=== PATIENT | female | born 2000 | race African-American/Black ===

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

== ENCOUNTER 2018-01-02 06:21 | Inpatient (IN) | payer MEDICAID, OTHER ==
[~2018-01-02] VITALS: Ht 167.6 cm; Wt 97.5 kg
[~2018-01-02 06:21] MED LIST: FLUO-191 PO; OLAN5TAB2 PO; TRAZ-144 PO
[2018-01-02] MEDS ORDERED: LORazepam 2 MG/ML VIAL IM ONE (08:00)
[2018-01-02] MEDS ORDERED: HALOPERIDOL LACTATE 5 MG/ML VIAL IM ONE (08:00)
[2018-01-02] MEDS ORDERED: DiphenhydrAMINE HCL 50 MG/ML VIAL IM ONE (08:00)
[2018-01-02] MEDS: OLANZapine 5 MG TABLET PO SCH ×3 (09:00→21:00)
[2018-01-02] MEDS ORDERED: OLANZapine 10 MG TABLET PO SCH (09:00)
[2018-01-02] MEDS: FLUoxetine HCL 20 MG CAPSULE PO SCH ×2 (09:00→10:29)
[2018-01-02 09:23] LABS: BASOPHILS % (AUTO) 0.6 % (0.0-2.0); EOSINOPHILS % (AUTO) 1.8 % (1.0-6.0); HEMATOCRIT 39.7 % (36-46); HEMOGLOBIN 13.6 g/dL (12.0-16.0); LYMPHOCYTES # (AUTO) 2.6 K/uL (1.0-4.8); LYMPHOCYTES % (AUTO) 26.6 % (22.0-44.0); MEAN CORPUSCULAR HEMOGLOBIN 29.4 pg (26.0-34.0); MEAN CORPUSCULAR HGB CONC 34.4 G/dL (31.0-37.0); MEAN CORPUSCULAR VOLUME 85 fL (80-100); MONOCYTES # (AUTO) 0.7 K/uL (0.1-1.0); MONOCYTES % (AUTO) 7.4 % (2.0-9.0); NEUTROPHILS # (AUTO) 6.1 K/uL (1.8-7.7); NEUTROPHILS % (AUTO) 63.6 % (40.0-70.0); PLATELET COUNT (AUTO) 296 K/uL (150-450); RED BLOOD CELL COUNT(AUTO) 4.65 MIL/uL (4.00-5.20); RED CELL DISTRIBUTION WIDTH 13.6 % (11.5-14.5)
[2018-01-02 09:31] LABS: ANION GAP 13 mmol/L (8-16); CALCIUM, TOTAL 9.2 mg/dL (8.8-10.5); CARBON DIOXIDE 25 mmol/L (22-29); CHLORIDE 100 mmol/L (98-107); CREATININE 1.19 mg/dL (0.60-1.30); GLOMERULAR FILTR. RATE CALC > 60 mL/min (>60); GLUCOSE,RANDOM 90 mg/dL (70-110); POTASSIUM 3.3 mmol/L (3.5-5.1); SODIUM SERUM 138 mmol/L (136-145); UREA NITROGEN, BLOOD 14 mg/dL (7-18)
[2018-01-02 09:37] LABS: ALANINE AMINOTRANSFERASE 37 U/L (12-78); ALBUMIN 3.7 g/dL (3.4-5.0); ALKALINE PHOSPHATASE 87 U/L (46-116); ASPARTATE AMINOTRANSFERASE 53 U/L (15-37); BILIRUBIN,TOTAL 0.6 mg/dL (0.1-1.0); TOTAL PROTEIN, SERUM 8.1 g/dL (6.4-8.2)
[2018-01-02 10:36] VITALS: BP 127/74
[2018-01-02 16:53] VITALS: BP 104/58
[2018-01-02] MEDS ORDERED: POTASSIUM CHLORIDE 10% 40 MEQ/30 ML LIQUID UDCUP PO ONE (18:15)
[2018-01-02 19:27] VITALS: BP 114/91
[2018-01-02] MEDS ORDERED: POTASSIUM CHLORIDE 20 MEQ ER TABLET PO ONE (19:45)
[2018-01-02] MEDS ORDERED: PNEUMOCOCCAL VACCINE POLYVALENT 0.5 ML VIAL [PPSV23] IM ONE (20:00)
[2018-01-02] MEDS: TraZODone HCL 50 MG TABLET PO SCH (21:00)
[2018-01-03] MEDS: LORazepam 2 MG TABLET PO PRN ×2 (06:35→14:35)
[2018-01-03 08:39] VITALS: BP 126/66
[2018-01-03] MEDS: FLUoxetine HCL 20 MG CAPSULE PO SCH (09:28)
[2018-01-03] MEDS: OLANZapine 5 MG TABLET PO SCH ×2 (09:28→20:45)
[2018-01-03 16:17] VITALS: BP 130/94
[2018-01-03] MEDS ORDERED: ACETAMINOPHEN 325 MG TABLET PO PRN (16:45)
[2018-01-03] MEDS: TraZODone HCL 50 MG TABLET PO SCH (20:45)
[2018-01-03] MEDS: ZOLPIDEM TARTRATE 10 MG TABLET PO PRN (21:10)
[2018-01-04] MEDS: LORazepam 2 MG TABLET PO PRN ×2 (10:14→16:10)
[2018-01-04] MEDS: OLANZapine 5 MG TABLET PO SCH ×2 (10:14→20:22)
[2018-01-04] MEDS: FLUoxetine HCL 20 MG CAPSULE PO SCH (10:14)
[2018-01-04] MEDS ORDERED: POTASSIUM CHLORIDE 20 MEQ ER TABLET PO ONE (10:15)
[2018-01-04] MEDS: HALOPERIDOL 5 MG TABLET PO PRN (16:12)
[2018-01-04 17:30] VITALS: BP 109/71
[2018-01-04] MEDS: TraZODone HCL 50 MG TABLET PO SCH (20:22)
[2018-01-04] MEDS: ZOLPIDEM TARTRATE 10 MG TABLET PO PRN (21:08)
[2018-01-05 06:39] VITALS: BP 138/79
[2018-01-05 08:13] VITALS: BP 122/71
[2018-01-05] MEDS: FLUoxetine HCL 20 MG CAPSULE PO SCH (08:49)
[2018-01-05] MEDS: OLANZapine 5 MG TABLET PO SCH (08:49)
[2018-01-05] MEDS: LORazepam 2 MG TABLET PO PRN (09:59)
[2018-01-05] MEDS: HALOPERIDOL 5 MG TABLET PO PRN (11:55)
== END 2018-01-05 13:30 | disposition home or self-care (01) | DRG 753 ==
LOC: EMS 06:22 → B3A 17:56
PROVIDERS: ATTEND Psychiatry & Neurology Child & Adolescent Psychiatry
DX: F31.2 Bipolar disorder, current episode manic severe with psychotic features (principal); I95.9 Hypotension, unspecified; E11.9 Type 2 diabetes mellitus without complications; I10 Essential (primary) hypertension; E87.6 Hypokalemia; G47.00 Insomnia, unspecified; R00.0 Tachycardia, unspecified; R74.0 Nonspecific elevation of levels of transaminase and lactic acid dehydrogenase [LDH]; F19.10 Other psychoactive substance abuse, uncomplicated; F10.10 Alcohol abuse, uncomplicated; Z79.899 Other long term (current) drug therapy; Z88.6 Allergy status to analgesic agent; Z91.018 Allergy to other foods; Z28.21 Immunization not carried out because of patient refusal
CPT/HCPCS: 87081; 96372; 99291; G0480; J1200; J1630; J2060

== ENCOUNTER 2018-01-21 15:23 | Inpatient (IN) | payer MEDICAID ==
[~2018-01-21] VITALS: Ht 167.6 cm; Wt 99.8 kg
[2018-01-21 16:52] VITALS: BP 129/79
[2018-01-21] MEDS: LORazepam 2 MG TABLET PO PRN (16:55)
[2018-01-21] MEDS: HALOPERIDOL 5 MG TABLET PO PRN (16:56)
[2018-01-21] MEDS ORDERED: PNEUMOCOCCAL VACCINE POLYVALENT 0.5 ML VIAL [PPSV23] IM ONE (17:00)
[2018-01-21] MEDS: TraZODone HCL 50 MG TABLET PO SCH (20:53)
[2018-01-21] MEDS: OLANZapine 5 MG TABLET PO SCH (20:53)
[2018-01-22 08:00] VITALS: BP 108/54
[2018-01-22] MEDS: OLANZapine 5 MG TABLET PO SCH ×3 (09:00→20:40)
[2018-01-22] MEDS: FLUoxetine HCL 20 MG CAPSULE PO SCH ×2 (09:00→12:28)
[2018-01-22] MEDS ORDERED: ACETAMINOPHEN 325 MG TABLET PO PRN (11:45)
[2018-01-22] MEDS: LORazepam 2 MG TABLET PO PRN (17:39)
[2018-01-22] MEDS: HALOPERIDOL 5 MG TABLET PO PRN (17:39)
[2018-01-22 17:54] VITALS: BP 98/59
[2018-01-22] MEDS: TraZODone HCL 50 MG TABLET PO SCH (20:40)
[2018-01-23] MEDS: OLANZapine 5 MG TABLET PO SCH ×2 (08:39→20:45)
[2018-01-23] MEDS: LORazepam 2 MG TABLET PO PRN ×2 (08:39→16:46)
[2018-01-23] MEDS: FLUoxetine HCL 20 MG CAPSULE PO SCH (08:39)
[2018-01-23] MEDS: HALOPERIDOL 5 MG TABLET PO PRN ×2 (09:01→16:46)
[2018-01-23 09:24] VITALS: BP 105/68
[2018-01-23 16:02] VITALS: BP 109/70
[2018-01-23] MEDS: TraZODone HCL 50 MG TABLET PO SCH (20:45)
[2018-01-23] MEDS: ZOLPIDEM TARTRATE 10 MG TABLET PO PRN (21:22)
[2018-01-23] MEDS: MUPIROCIN CALCIUM 2% 22 GM OINTMENT NASAL SCH (22:01)
[2018-01-24] MEDS: MUPIROCIN CALCIUM 2% 22 GM OINTMENT NASAL SCH ×2 (09:38→17:23)
[2018-01-24] MEDS: OLANZapine 5 MG TABLET PO SCH ×2 (09:38→20:31)
[2018-01-24] MEDS: FLUoxetine HCL 20 MG CAPSULE PO SCH (09:38)
[2018-01-24 09:46] VITALS: BP 104/73
[2018-01-24] MEDS: LORazepam 2 MG TABLET PO PRN (10:14)
[2018-01-24] MEDS: HALOPERIDOL 5 MG TABLET PO PRN (10:14)
[2018-01-24] MEDS: TraZODone HCL 50 MG TABLET PO SCH (20:31)
[2018-01-25 06:22] VITALS: BP 117/68
[2018-01-25] MEDS: MUPIROCIN CALCIUM 2% 22 GM OINTMENT NASAL SCH ×2 (09:25→16:41)
[2018-01-25] MEDS: FLUoxetine HCL 20 MG CAPSULE PO SCH (09:25)
[2018-01-25] MEDS: OLANZapine 5 MG TABLET PO SCH ×2 (09:25→20:31)
[2018-01-25] MEDS: LORazepam 2 MG TABLET PO PRN ×2 (10:13→16:41)
[2018-01-25] MEDS: HALOPERIDOL 5 MG TABLET PO PRN (15:27)
[2018-01-25] MEDS: TraZODone HCL 50 MG TABLET PO SCH (20:30)
[2018-01-26 06:39] VITALS: BP 121/70
[2018-01-26 08:15] VITALS: BP 122/91
[2018-01-26] MEDS: OLANZapine 5 MG TABLET PO SCH ×2 (08:36→20:20)
[2018-01-26] MEDS: FLUoxetine HCL 20 MG CAPSULE PO SCH (08:36)
[2018-01-26] MEDS: LORazepam 2 MG TABLET PO PRN ×2 (08:36→14:04)
[2018-01-26] MEDS: MUPIROCIN CALCIUM 2% 22 GM OINTMENT NASAL SCH ×2 (09:13→16:16)
[2018-01-26] MEDS: HALOPERIDOL 5 MG TABLET PO PRN (14:04)
[2018-01-26 16:05] VITALS: BP 137/73
[2018-01-26] MEDS: TraZODone HCL 50 MG TABLET PO SCH (20:20)
[2018-01-26] MEDS: ZOLPIDEM TARTRATE 10 MG TABLET PO PRN (21:58)
[2018-01-27 07:01] VITALS: BP 128/72
[2018-01-27 08:24] VITALS: BP 128/72
[2018-01-27] MEDS: MUPIROCIN CALCIUM 2% 22 GM OINTMENT NASAL SCH ×2 (09:36→17:02)
[2018-01-27] MEDS: FLUoxetine HCL 20 MG CAPSULE PO SCH (09:36)
[2018-01-27] MEDS: LORazepam 2 MG TABLET PO PRN ×2 (09:37→16:41)
[2018-01-27] MEDS: HALOPERIDOL 5 MG TABLET PO PRN ×2 (09:37→16:41)
[2018-01-27] MEDS: OLANZapine 5 MG TABLET PO SCH ×2 (09:37→20:56)
[2018-01-27 16:05] VITALS: BP 119/73
[2018-01-27] MEDS: ZOLPIDEM TARTRATE 10 MG TABLET PO PRN (20:56)
[2018-01-27] MEDS: TraZODone HCL 50 MG TABLET PO SCH (20:56)
[2018-01-28] MEDS: LORazepam 2 MG TABLET PO PRN (06:44)
[2018-01-28] MEDS: HALOPERIDOL 5 MG TABLET PO PRN (06:44)
[2018-01-28] MEDS: FLUoxetine HCL 20 MG CAPSULE PO SCH (08:48)
[2018-01-28] MEDS: OLANZapine 5 MG TABLET PO SCH (08:48)
[2018-01-28] MEDS: MUPIROCIN CALCIUM 2% 22 GM OINTMENT NASAL SCH (08:48)
[2018-01-28 08:55] VITALS: BP 122/77
[2018-01-28 11:00] VITALS: BP 80/50
[2018-01-28 11:15] VITALS: BP_SYST 80
[2018-01-28 11:22] LABS: GLUCOMETER DEV NAME(LOC) BV3S 2; GLUCOSE,POINT OF CARE 112 MG/DL (70-110)
== END 2018-01-28 15:30 | disposition short-term general hospital (02) | DRG 751 ==
LOC: B3A 16:25
PROVIDERS: ADMIT Psychiatry & Neurology Psychiatry; ATTEND Psychiatry & Neurology Child & Adolescent Psychiatry
DX: F33.3 Major depressive disorder, recurrent, severe with psychotic symptoms (principal); R45.851 Suicidal ideations; F15.10 Other stimulant abuse, uncomplicated; R74.0 Nonspecific elevation of levels of transaminase and lactic acid dehydrogenase [LDH]; F41.9 Anxiety disorder, unspecified; F10.10 Alcohol abuse, uncomplicated; F94.0 Selective mutism; Z28.21 Immunization not carried out because of patient refusal; Z88.6 Allergy status to analgesic agent; Z91.018 Allergy to other foods; Z79.899 Other long term (current) drug therapy; Z71.41 Alcohol abuse counseling and surveillance of alcoholic; Z71.51 Drug abuse counseling and surveillance of drug abuser
CPT/HCPCS: 87081

== ENCOUNTER 2018-01-29 10:15 | Inpatient (IN) | payer MEDICAID ==
[~2018-01-29] VITALS: Ht 167.6 cm; Wt 102.6 kg
[2018-01-29] MEDS ORDERED: ZOLPIDEM TARTRATE 10 MG TABLET PO PRN (10:45)
[2018-01-29] MEDS ORDERED: HALOPERIDOL 5 MG TABLET PO PRN (10:45)
[2018-01-29 11:22] VITALS: BP 130/83
[2018-01-29] MEDS: LORazepam 2 MG TABLET PO PRN ×2 (12:38→16:39)
[2018-01-29 16:00] VITALS: BP 124/76
[2018-01-29] MEDS ORDERED: NICOTINE 21 MG/24 HOUR PATCH TD SCH (18:30)
[2018-01-29] MEDS ORDERED: OLANZapine 5 MG TABLET PO SCH (21:00)
[2018-01-29] MEDS ORDERED: TraZODone HCL 50 MG TABLET PO SCH (21:00)
[2018-01-30 03:13] VITALS: BP 105/60
[2018-01-30] MEDS ORDERED: FLUoxetine HCL 20 MG CAPSULE PO SCH (09:00)
[2018-01-30 10:04] LABS: AMPHET/METH SCREEN,URINE NEGATIVE (NEGATIVE); BARBITURATE SCREEN, URINE NEGATIVE (NEGATIVE); BENZODIAZEPINES SCREEN,URINE NEGATIVE (NEGATIVE); CANNABINOID SCREEN,URINE POSITIVE (NEGATIVE); COCAINE SCREEN,URINE NEGATIVE (NEGATIVE); METHADONE SCREEN, URINE NEGATIVE (NEGATIVE); OPIATE SCREEN,URINE NEGATIVE (NEGATIVE)
[2018-01-30 10:05] LABS: PHENCYCLIDINE SCREEN,URINE NEGATIVE (NEGATIVE)
[2018-01-30 10:50] LABS: APPEARANCE,URINE CLEAR (CLEAR); BILIRUBIN,URINE NEGATIVE (NEGATIVE); GLUCOSE, URINE (UA) NEGATIVE (NEGATIVE); KETONES,URINE NEGATIVE (NEGATIVE); LEUKOCYTE ESTERASE ,URINE NEGATIVE (NEGATIVE); NITRATE,URINE NEGATIVE (NEGATIVE); OCCULT BLOOD,URINE NEGATIVE (NEGATIVE); PH,URINE 5.5 (5.0-8.0); PROTEIN,URINE NEGATIVE (NEGATIVE); UROBILINOGEN,URINE 0.2 mg/dL (<=1.0)
== END 2018-01-30 07:39 | disposition home or self-care (01) | DRG 750 ==
LOC: B3A 10:50
PROVIDERS: ADMIT Psychiatry & Neurology Child & Adolescent Psychiatry; ATTEND Psychiatry & Neurology Child & Adolescent Psychiatry
DX: F20.0 Paranoid schizophrenia (principal); R74.0 Nonspecific elevation of levels of transaminase and lactic acid dehydrogenase [LDH]; F41.9 Anxiety disorder, unspecified; F12.20 Cannabis dependence, uncomplicated; F10.10 Alcohol abuse, uncomplicated; F19.10 Other psychoactive substance abuse, uncomplicated; Z88.6 Allergy status to analgesic agent; Z91.018 Allergy to other foods; Z71.41 Alcohol abuse counseling and surveillance of alcoholic; Z71.51 Drug abuse counseling and surveillance of drug abuser
CPT/HCPCS: 80307; 87081